=== PATIENT | female | born 1970 | race Caucasian/White ===

== ENCOUNTER 2020-03-27 10:15 | Day surgery (SDC) | payer MEDICAID ==
[~2020-03-27] VITALS: Ht 167.6 cm; Wt 80.9 kg
[2020-03-27] MEDS ORDERED: NONE PER PT (10:52)
[2020-03-27] MEDS ORDERED: LACTATED RINGERS 1,000 ML IV SCH (10:52)
[2020-03-27] MEDS ORDERED: CHLORHEXIDINE 15 ML UDC MM ONE (11:00)
[2020-03-27 11:18] VITALS: BP 119/83
[2020-03-27 11:27] LABS: HCG UR SG 1.029 (1.003-1.030)
[2020-03-27] MEDS ORDERED: MIDAZOLAM 1 MG/ML, 2ML ONE (12:14)
[2020-03-27] MEDS ORDERED: FENTANYL PF 250 MCG/5ML ONE (12:14)
[2020-03-27] MEDS ORDERED: ROPIvacaine/PF 0.5%, 30 ML ONE (12:22)
[2020-03-27] MEDS ORDERED: LIDOCAINE/PF 1%-EPI 1:200K, 30 ML ONE (12:22)
[2020-03-27] MEDS ORDERED: morphine SULFATE 10 MG/ML, 1ML IVPush PRN (12:30)
[2020-03-27] MEDS ORDERED: HYDROmorphone 1 MG/ML, 1ML INJ IVPush PRN (12:30)
[2020-03-27] MEDS ORDERED: MEPERIDINE/PF 25MG/0.5ML IVPush PRN (12:30)
[2020-03-27] MEDS ORDERED: HALOPERIDOL 5 MG/ML IV PRN (12:30)
[2020-03-27] MEDS ORDERED: ACETAMINOPHEN 325 MG TABLET PO PRN (12:30)
[2020-03-27] MEDS ORDERED: PROMETHAZINE 25 MG/ML, 1ML IVPush PRN (12:30)
[2020-03-27] MEDS ORDERED: FENTANYL PF 100 MCG/2ML IV PRN (12:30)
[2020-03-27] MEDS ORDERED: OXYcodone 5 MG/5 ML ORAL.SOL UDC PO PRN ×2 (12:30→15:30)
[2020-03-27] MEDS ORDERED: hydrALAzine 20 MG/ML, 1ML IV PRN (12:30)
[2020-03-27] MEDS ORDERED: LABETALOL 5MG/ML, 20ML IV PRN (12:30)
[2020-03-27] MEDS ORDERED: KETOROLAC 30 MG/1 ML ONE (13:17)
[2020-03-27] MEDS ORDERED: DEXAMETHASONE 4 MG/ML, 1ML ONE (13:20)
[2020-03-27] MEDS ORDERED: PROPOFOL 10 MG/ML, 20ML ONE (13:20)
[2020-03-27] MEDS ORDERED: CEFAZOLIN 1,000 MG ONE (13:20)
[2020-03-27] MEDS ORDERED: ONDANSETRON 2MG/ML, 2ML ONE (13:20)
[2020-03-27] MEDS ORDERED: OXYcodone 5 MG/5 ML ORAL.SOL UDC ONE (13:58)
== END 2020-03-27 15:35 | disposition home or self-care (01) ==
LOC: OUT 10:15
PROVIDERS: ATTEND Orthopaedic Surgery
DX: S83.232A Complex tear of medial meniscus, current injury, left knee, initial encounter (principal); Z11.59 Encounter for screening for other viral diseases; M22.42 Chondromalacia patellae, left knee; Z98.890 Other specified postprocedural states; Z82.61 Family history of arthritis; X58.XXXA Exposure to other specified factors, initial encounter; Y93.89 Activity, other specified; Y92.89 Other specified places as the place of occurrence of the external cause; Y99.8 Other external cause status
CPT/HCPCS: 29881; 81025; J0690; J1100; J1885; J2250; J2405; J2704; J2795; J3010; J3490; J7120; U0001